=== PATIENT | female | born 1955 | race African-American/Black ===

== ENCOUNTER 2018-12-08 09:21 | Emergency (ER) | payer MEDICAID ==
[~2018-12-08] VITALS: Ht 152.4 cm; Wt 60.0 kg
[~2018-12-08 09:21] MED LIST: NIFE30TA94 PO
[2018-12-08] MEDS ORDERED: KETOROLAC 30MG/ML VIAL IM ONE (10:45)
[2018-12-08 10:59] VITALS: BP 175/89
[2018-12-08] MEDS ORDERED: KETOROLAC 15MG/ML VIAL IM NR (11:00)
== END 2018-12-08 11:01 | disposition home or self-care (01) ==
LOC: ER 09:47
DX: M54.5 Low back pain (principal); M62.830 Muscle spasm of back; I10 Essential (primary) hypertension; F17.200 Nicotine dependence, unspecified, uncomplicated; F12.10 Cannabis abuse, uncomplicated; Z98.890 Other specified postprocedural states; Z88.0 Allergy status to penicillin; Z79.899 Other long term (current) drug therapy
CPT/HCPCS: 96372; 99283; J1885

== ENCOUNTER 2021-04-21 15:24 | Emergency (ER) | payer MEDICAID, OTHER ==
[~2021-04-21] VITALS: Ht 129.5 cm; Wt 75.0 kg
[2021-04-21 15:34] VITALS: BP 153/96
== END 2021-04-21 20:44 | disposition left against medical advice (07) ==
LOC: ER 15:24
DX: Z53.21 Procedure and treatment not carried out due to patient leaving prior to being seen by health care provider (principal)